=== PATIENT | male | born 1960 | race Caucasian/White ===

== ENCOUNTER 2022-02-18 16:55 | Emergency (ER) | payer BC, SELFPAY ==
[2022-02-18] VITALS (21 sets, daily range): BP systolic 124–143; BP diastolic 73–85; PULSE 94–123; RESP 13–41; TEMP 38.4; O2SAT 95–100
--- NOTE | ~2022-02-18 | XR_ITS ---
XR chest 2V DATE: 02/18/2022 18:15 INDICATION: Chest pain TECHNIQUE: AP and lateral views COMPARISON: None FINDINGS: Heart size is normal. No hilar or mediastinal enlargement. No pulmonary infiltrate or conso lidation, pleural effusion or pulmonary vascular congestion or pneumothorax is detected. Anterior plate and screws in the cervical-T1 area. Mild thoracolumbar levoscoliosis. Mild degenerativ e change of the thoracic and lumbar spine. Old right clavicular shaft fracture. IMPRESSION: No active cardiopulmonary disease Reviewed, dictated and finalized at location A. 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
--- NOTE | ~2022-02-18 | CT_ITS ---
EXAMINATION: CTA chest PE protocol DATE: 02/18/2022 19:01 INDICATION: Chest tightness, tachycardia. Recent Covid vaccination. TECHNIQUE: Computed tomography angiography (CTA) of the chest was performed with 100 mL Omnipaque-350 intravenous contrast timed to evaluate the pulmonary arteries. Coronal maximum intensity projection 3D-reconstructions were created by the technologist. Automated exposure control and iterative reconst ruction technique were employed. Exam dose: 491.74 mGy-cm total exam DLP. COMPARISON: 02/18/2022 AP and lateral chest FINDINGS: There is suboptimal opacification of the pulmonary arteries compared to the thoracic aorta due to timing issue. No apparent pulmonary embolus is identified. No thoracic aortic aneurysm or dissection. Normal heart size. Prominent calcification versus stents at the left anterior descending coronary art angie. Recommend correlation with patient history. No pericardial or pleural effusion. No hilar or mediastinal mass lesion or lymphadenopathy. No pulmonary infiltrate or consolidation or pulmonary mass lesion. Status post lower anterior cervical spine surgical fusion Degenerative spurring of the thoracic spine. No suspicious osteolytic or osteoblastic lesions. IMPRESSION: No evidence of pulmonary embolism. Reviewed, dictated and finalized at Location [facility]. Reviewed, dictated and finalized at location A. 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
--- NOTE | 2022-02-18 16:59 | ECG_ITS ---
Measurements Intervals [place] Rate: 117 P: 18 IN: 153 QRS: -22 QRSD: 88 T: 5 QT: 307 QTc: 429 Interpretive Statements SINUS TACHYCARDIA BORDERLINE LEFT AXIS DEVIATION [QRS AXIS < -20] ABNORMAL RHYTHM ECG NO PREVIOUS ECG AVAILABLE FOR COMPARISON Electronically Signed On 02-19-2022 17:47:19 SORTER PRICER by Iam Palafox M.D.
[2022-02-18 17:28] LABS: Basophils Percent Auto 0.2 % (0.2-1.2); Eosinophils Absolute Auto 0.1 K/mm3 (0-0.3); Eosinophils Percent Auto 0.7 % (0-4.4); Hematocrit 43.7 % (42.0-52.0); Hemoglobin 14.4 g/dL (14.0-18.0); Immature Granulocyte Absolute 0.03 K/mm3 (0.00-0.031); Immature Granulocyte Percent A 0.3 % (0-0.5); Lymphocytes Absolute Auto 0.68 K/mm3 (0.9-3.2); Lymphocytes Percent Auto 6.3 % (18.3-44.2); Mean Corpuscular Hemoglobin 30.3 pg (26-34); Mean Corpuscular Volume 91.8 fl (80-100); Mean Platelet Volume 9.8 fl (7.4-10.4); Monocytes Absolute Auto 0.7 K/mm3 (0.1-0.6); Monocytes Percent Auto 6.8 % (2.6-8.5); Neutrophils Absolute Auto 9.2 K/mm3 (1.3-6.7); Neutrophils Percent Auto 85.7 % (45.5-73.1); Platelet Count Result 203 k/mm3 (150-375); Red Blood Count 4.76 M/mm3 (4.6-6.20); Red Cell Distribution Width 13.8 % (11.5-14.5); White Blood Count 10.7 K/mm3 (4.5-10.0)
[2022-02-18 17:37] LABS: INR 1.1; Prothrombin Time 13.6 Seconds (11.1-14.7)
[2022-02-18 17:38] LABS: Partial Thromboplastin Time 32.4 SECONDS (22.3-36.8)
[2022-02-18 17:41] LABS: Alanine Aminotransferase 45 U/L (6-50); Albumin Level 4.7 g/dL (3.5-5.1); Alkaline Phosphatase 87 U/L (38-126); Anion Gap 9 mmol/L (8-16); Aspartate Amino Transferase 32 U/L (17-59); Bilirubin,Total 0.7 mg/dL (0.2-1.3); Blood Urea Nitrogen 20 mg/dL (9-20); Calcium 9.3 mg/dL (8.4-10.2); Carbon Dioxide 22 mmol/L (22-30); Chloride 107 mmol/L (98-107); Estimated CRCL calculation 83 ml/min; Estimated Glomerular Filt Rate > 60; Glucose 112 mg/dL (65-110); Lipase 103 U/L (23-300); Potassium 4.1 mmol/L (3.4-5.0); Sodium 138 mmol/L (137-145)
[2022-02-18 17:52] LABS: Troponin I < 0.012 ng/mL (0.000-0.034)
--- NOTE | 2022-02-18 18:00 | ED.GENADULT ---
HPI - General Adult General Chief complaint: Upper Respiratory Infection Stated complaint: chest pain, fever Time Seen by Provider: 02/18/22 17:55 History of Present Illness HPI narrative: 61-year-old male history of hypertension, CAD, hyperlipidemia presents to the emergency room for gradual onset chest tightness and tachycardia. Patient states he recently received his fifth COVID shot, and this is when his symptoms started. Patient states that he has had COVID 5 months ago. States the tightness has not alleviated or aggravated by any factors. Patient also endorses a low-grade fever. Related Data Allergies Allergy/AdvReac Type Severity Reaction Status Date / Time No Known Allergies Allergy Verified 02/18/22 17:56 Review of Systems Review of Systems: CONSTITUTIONAL: Denies fever, chills, or sweats. EYES: Denies visual changes, redness, or discharge. ENT: Denies rhinorrhea, congestion, sore throat, or otalgia. CARDIOVASCULAR: Reports chest tightness RESPIRATORY: Denies cough or dyspnea. GASTROINTESTINAL: Denies abdominal pain, nausea, vomiting, or diarrhea. GENITOURINARY: Denies dysuria or hematuria. SKIN: Denies rash or itching. MUSCULOSKELETAL: Denies back pain, joint pain, or myalgia. NEUROLOGIC: Denies headache, numbness, dizziness, or weakness. PSYCHIATRIC: Denies anxiety or depression. Exam Narrative: GENERAL: Well-appearing, well-nourished, no physical limitations, and in no acute distress. HEAD: Normocephalic, atraumatic. EYES: Conjunctivae normal, PERRLA and EOMI. CHEST: Clear to auscultation. No respiratory distress. No wheezes rales or rhonchi. No tenderness. HEART: Tachycardic with a regular rhythm. No murmur heard. Normal peripheral pulses. BACK: No cervical/thoracic/lumbar tenderness, step-offs, bony abnormality; FROM EXTREMITIES: Normal range of motion. No edema. No clubbing or cyanosis SKIN: Warm, dry, no rash. No noted wounds NEURO: No focal deficits. Alert and oriented x3. MAEW. CN's II-XI intact bilaterally, normal gait PSYCH: Cooperative. Normal mood and affect. Course Vital Signs Vital signs: Vital Signs Temperature 38.4 C H 02/18/22 17:09 Pulse Rate 123 H 02/18/22 17:09 Respiratory Rate 20 02/18/22 17:09 Blood Pressure 124/85 02/18/22 17:09 Pulse Oximetry 100 02/18/22 17:09 Oxygen Delivery Room Air 02/18/22 17:09 Temperature 38.4 C H 02/18/22 17:09 Pulse Rate 96 02/18/22 21:18 Respiratory Rate 18 02/18/22 21:18 Blood Pressure 130/79 02/18/22 19:31 Pulse Oximetry 99 02/18/22 19:31 Oxygen Delivery Room Air 02/18/22 17:57 Medical Decision Making MDM Narrative Medical decision making narrative: 61-year-old male presented complaining of shortness of breath, chest tightness and a fever since Thursday. States he began feeling that way after receiving his fifth COVID shot. Patient was febrile here and given Tylenol. Labs are unremarkable. Chest x-ray shows no acute cardio or pulmonary disease. CT scan showed no evidence of a PE. Patient was negative for COVID, flu and RSV. Patient likely experiencing adverse reaction to the COVID shot versus a viral infection. We will send patient home with prednisone. Vital Signs Vital Signs: Vital Signs Temperature 38.4 C H 02/18/22 17:09 Pulse Rate 123 H 02/18/22 17:09 Respiratory Rate 20 02/18/22 17:09 Blood Pressure 124/85 02/18/22 17:09 Pulse Oximetry 100 02/18/22 17:09 Oxygen Delivery Room Air 02/18/22 17:09 Temperature 38.4 C H 02/18/22 17:09 Pulse Rate 96 02/18/22 21:18 Respiratory Rate 18 02/18/22 21:18 Blood Pressure 130/79 02/18/22 19:31 Pulse Oximetry 99 02/18/22 19:31 Oxygen Delivery Room Air 02/18/22 17:57 Lab Data 02/18/22 17:17 02/18/22 17:17 Labs: Lab Results 02/18/22 02/18/22 02/18/22 Range/Units 17:17 17:17 17:17 WBC 10.7 H (4.5-10.0) K/mm3 RBC 4.76 (4.6-6.20) M/mm3 Hgb 14.4 (14.0-18.0) g/dL Hc
[2022-02-18 18:10] LABS: Influenza A QL RT-PCR Negative (Negative); Influenza B QL RT-PCR Negative (Negative); SARS-CoV-2 RNA PCR Negative
[2022-02-18] MEDS: SODIUM CHLORIDE 0.9% IV 1,000 ML 999 ML IV CONT (18:43)
--- NOTE | 2022-02-18 19:27 | PC.NURSE ---
Patient report received from ABDULLAHI Alonso. All questions answered and care of patient assumed.
[2022-02-18 20:52] LABS: Troponin I < 0.012 ng/mL (0.000-0.034)
== END 2022-02-18 21:48 | disposition home or self-care (01) ==
PROVIDERS: Emergency Medicine; Emergency Provider Nurse Practitioner Family; PCP Internal Medicine
DX: R07.89 Other chest pain (principal); T50.B95A Adverse effect of other viral vaccines, initial encounter; B34.9 Viral infection, unspecified; Z20.822 Contact with and (suspected) exposure to COVID-19; I25.10 Atherosclerotic heart disease of native coronary artery without angina pectoris; I10 Essential (primary) hypertension; E78.5 Hyperlipidemia, unspecified; Z86.16 Personal history of COVID-19
CPT/HCPCS: 36415; 71046; 71275; 80053; 83690; 84484; 85025; 85610; 85730; 87636; 93005; 96360; 96361; 99284; J7030; Q9967

== ENCOUNTER 2022-02-20 06:18 | Emergency (ER) | payer BC, SELFPAY ==
[2022-02-20 06:19] VITALS: BP 135/81; PULSE 67; RESP 16; TEMP 36.2; O2SAT 100
[2022-02-20 06:45] VITALS: BP 109/78; PULSE 63; RESP 20; O2SAT 97
--- NOTE | 2022-02-20 06:48 | PC.NURSE ---
Pt c/o left ankle pain that started 2 days ago. He has been trying to manage his pain at home with tylenol but it is ineffective. He denies known injury. Ankle if red, swollen, and hot to touch. He denies known fevers. Pedal pulse palpable and strong. ROM limited d/t pain.
[2022-02-20] MEDS: ONDANSETRON INJ 4 MG/2 ML VIAL IV PUSH (07:05)
[2022-02-20] MEDS: KETOROLAC 30 MG/ML VIAL (*BKC) IV PUSH (07:07)
--- NOTE | 2022-02-20 07:25 | PC.NURSE ---
Nurse report given to Jae FERNANDO and Clemencia FERNANDO
--- NOTE | 2022-02-20 07:52 | ED_ITS ---
HPI - Extremity Problem General Chief complaint: Extremity Problem,Nontraumatic Stated complaint: lt ankle pain Time Seen by Provider: 02/20/22 07:28 History of Present Illness HPI Narrative: Pt presents with pain and redness to inside of left ankle for a couple of days. Pt denies fever, but says felt feverish a couple of days ago. Pt was seen in ER for CP. Pt denies injury or trauma. Pt had injection for plantar fascitis a couple of months ago. Related Data Allergies Allergy/AdvReac Type Severity Reaction Status Date / Time No Known Allergies Allergy Verified 02/20/22 06:19 Review of Systems Review of Systems: All systems reviewed & are unremarkable except as noted in HPI and below Exam Const: General: healthy appearing Nutritional Appearance: well nourished Orientation/consciousness: patient oriented x3 Limitations: no limitations Eyes: Conjunctivae: conjunctivae normal Resp: Effort & Inspection: normal respiratory effort Cardio: Rate: regular rate Rhythm: regular rhythm GI: GI Palp: Yes Soft to palpation Skin: Other: erythema to medial ankle and spreading to medial lower leg but no posterior calf tenderness, neg rob's, no inguinal lymphadenopathy. no palpable abscess or drainage Neuro: General: patient oriented x3, moves all extremities and no focal motor deficits Extrem: General: no clubbing, cyanosis or edema Other: see skin exam above Psych: Mental Status: mental status grossly normal Affect: normal affect Attitude: cooperative Course Vital Signs Vital signs: Vital Signs Temperature 97.1 F L 02/20/22 06:19 Pulse Rate 67 02/20/22 06:19 Respiratory Rate 16 02/20/22 06:19 Blood Pressure 135/81 02/20/22 06:19 Pulse Oximetry 100 02/20/22 06:19 Oxygen Delivery Room Air 02/20/22 06:19 Temperature 97.1 F L 02/20/22 06:19 Pulse Rate 84 02/20/22 09:30 Respiratory Rate 16 02/20/22 09:30 Blood Pressure 132/88 02/20/22 09:30 Pulse Oximetry 98 02/20/22 09:30 Oxygen Delivery Room Air 02/20/22 06:19 MDM - Extremity (Nontraumatic) MDM Narrative Medical decision making narrative: seems to be a cellulitis and no abscess noted. given the distant nature of i njection less likely to be deep abscess in heel. discussed with patient and he agreed to gie antibiotics and pain meds a try and if not improved in a couple of days will follow up or return for imaging and a larger work up. Will gie dose of Rocephin and some pain meds here and discharge home on antibiotics and pain meds. Discharge Plan Discharge Clinical Impression: Cellulitis Patient Disposition: Home, Self-Care Condition: Improved Prescriptions: New sulfamethoxazole-trimethoprim [Bactrim DS] 800-160 mg tablet 2 tablet PO Q12H Qty: 40 0RF hydrocodone-acetaminophen 5-325 mg tablet 1 tablet PO Q4H PRN (Reason: pain) Qty: 14 0RF No Action prednisone 20 mg tablet 60 mg PO DAILY 5 Days Qty: 15 0RF Follow-up/Referrals: Yesenia,Eren Weber MD [Primary Care Provider] -
[2022-02-20] MEDS: cefTRIAXone 2 GM in SODIUM CHLORIDE 0.9% IV 100 ML 200 ML IVPB (08:19)
[2022-02-20] MEDS: HYDROmorphone HCL INJ (*CRX) 1 MG/ML SYR IV PUSH (08:19)
[2022-02-20 09:30] VITALS: BP 132/88; PULSE 84; RESP 16; O2SAT 98
== END 2022-02-20 09:35 | disposition home or self-care (01) ==
PROVIDERS: Emergency Provider Emergency Medicine; PCP Internal Medicine
DX: L03.116 Cellulitis of left lower limb (principal)
CPT/HCPCS: 96365; 96366; 96375; 99284; J0696; J1170; J1885; J2405

== ENCOUNTER → 2023-03-04 08:23 | Outpatient (CLI) | payer OTHER, SELFPAY ==
--- NOTE | ~2023-03-04 | XR_ITS ---
Left foot Technique: AP, oblique, and lateral views were obtained. Clinical History: Pain Findings: No acute fracture or dislocation is seen. Osseous alignment is anatomic. Joint spaces are p reserved without erosive or degenerative change. Soft tissues are unremarkable. Impression: Unremarkable left foot radiographs. Reviewed, dictated and finalized at location . 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
== END ==
PROVIDERS: PCP Family Medicine; Visit Provider Family Medicine
DX: M79.672 Pain in left foot (principal)
CPT/HCPCS: 73630

== ENCOUNTER 2023-04-07 12:23 | Outpatient (CLI) | payer OTHER, SELFPAY ==
--- NOTE | ~2023-04-07 | MR_ITS ---
EXAMINATION: MR foot LT wo con DATE: 04/07/2023 13:03 INDICATION: TECHNIQUE: Magnetic resonance imaging (MRI) of the left total excluding the toes was performed withou t intravenous contrast. Sequences included sagittal T1-weighted FSE, sagittal fluid sensitive FSE STI R, coronal PD-weighted FS FSE, coronal T1-weighted FSE, axial PD-weighted FS FSE, and axial PD-weight ed FSE. COMPARISON: Radiographs dated 03/04/2023 FINDINGS: Medial ankle ligaments: Deep deltoid ligament is normal. There is mild thickening of the anterior superficial deltoid ligamen t without surrounding edema consistent with mild scarring related to chronic sprain. Similar there is thickening and mild increased signal without surrounding edema at the distal aspect of the superomed ial component of the spring ligament complex consistent with chronic partial tear. The medial plantar oblique and infra plantar lateral components of the spring ligament complex are normal. Lateral ankle ligaments: The anterior and posterior inferior tibiofibular ligaments are normal. The anterior talofibular, calc aneofibular and posterior talofibular ligaments are normal. Tendons: Achilles tendon is normal. The peroneus longus and brevis tendons are normal. The tibialis anterior a nd extensor hallucis longus and extensor digitorum longus tendons are normal. The tibialis posterior, flexor digitorum longus and flexor hallucis longus tendons are normal. Plantar fascia: Small plantar calcaneal enthesophyte. There is moderate tendinosis and full-thickness avulsion avulsi on and 1.4 cm distal retraction of the majority of the medial and central components of the plantar a poneurosis. Bones/other: Bone alignment is normal. No fracture. 11 x 5 x 4 mm globular T2 hyperintense lesion with ring and ar c-like peripheral low signal at the tibial plafond most consistent with an enchondroma. There is a 3 mm low signal intensity bone islands more posterior laterally at the tibial plafond. Mild osteoarthri tis at the first metatarsophalangeal joint. Lisfranc ligament complex is normal. Fluid: Physiologic amount of fluid in the joint spaces. IMPRESSION: 1. Moderate enthesopathy with full-thickness avulsion and distal retraction of the majority the media l and central components of the plantar aponeurosis. 2. Scarring consistent with chronic partial tears of the superomedial component of the spring ligamen t complex and the anterior superficial deltoid ligament. Reviewed, dictated and finalized at location A. 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 Moderate enthesopathy with full-thickness avulsion and distal retraction of the majority the medial and central components of the plantar aponeurosis. 2. Scarring consistent with chronic partial tears of the superomedial component of the spring ligament complex and the anterior superficial deltoid ligament.
== END 2023-04-07 12:24 ==
LOC: MICIMG 12:24
PROVIDERS: PCP Podiatrist Foot & Ankle Surgery; Visit Provider Podiatrist Foot & Ankle Surgery
DX: M77.52 Other enthesopathy of left foot and ankle (principal)
CPT/HCPCS: 73718